=== PATIENT | female | born 1990 | race Asian ===

== ENCOUNTER → 2017-12-05 | Outpatient (CLI) | payer BC ==
[2017-12-05 08:42] LABS: ADD MAN DIFF? NO
[2017-12-05 08:51] LABS: BASOPHIL # 0.1 10^3/ul (0.0-0.1); BASOPHILS % 1.1 % (0.0-2.0); EOSINOPHILS # 0.2 10^3/ul (0.0-0.5); EOSINOPHILS % 3.2 % (0.0-7.0); HEMATOCRIT 45.2 % (37.0-47.0); HEMOGLOBIN 15.6 g/dl (12.0-16.0); LYMPHOCYTES # 1.9 10^3/ul (0.8-2.9); LYMPHOCYTES % 29.4 % (15.0-51.0); MEAN CORPUSCULAR HEMOGLOBIN 29.8 pg (29.0-33.0); MEAN CORPUSCULAR HGB CONC 34.5 g/dl (32.0-37.0); MEAN CORPUSCULAR VOLUME 86.3 fl (82.0-101.0); MEAN PLATELET VOLUME 9.7 fl (7.4-10.4); MONOCYTE # 0.4 10^3/ul (0.3-0.9); MONOCYTES % 5.8 % (0.0-11.0); NEUTROPHIL # 3.9 10^3/ul (1.6-7.5); NEUTROPHILS % 60.2 % (39.0-77.0); PLATELET COUNT 313 10^3/UL (140-415); RED BLOOD COUNT 5.24 10^6/ul (4.20-5.40); RED CELL DISTRIBUTION WIDTH 12.3 % (11.5-14.5)
[2017-12-05 08:51] LABS: WHITE BLOOD COUNT 6.5 10^3/ul (4.8-10.8)
[2017-12-05 09:00] LABS: HEMOGLOBIN A1C 5.4 % (0-5.9)
[2017-12-05 09:25] LABS: ALANINE AMINOTRANSFERASE 44 IU/L (13-69); ALBUMIN 4.8 g/dl (3.3-4.9); ALBUMIN/GLOBULIN RATIO 1.71; ALKALINE PHOSPHATASE 80 IU/L (42-121); ANION GAP 17 (8-16); ASPARTATE AMINO TRANSFERASE 27 IU/L (15-46); BILIRUBIN,INDIRECT 0.5 mg/dl (0-1.1); BILIRUBIN,TOTAL 0.5 mg/dl (0.2-1.3); BLOOD UREA NITROGEN 16 mg/dl (7-20); CALCIUM 9.5 mg/dl (8.4-10.2); CARBON DIOXIDE 25 mmol/L (21-31); CHLORIDE 105 mmol/L (97-110); CHOL/HDL RATIO 2.8 RATIO; CHOLESTEROL 169 mg/dl (100-200); CREATININE 1.01 mg/dl (0.44-1.00); GLUCOSE 101 mg/dl (70-220); HDL CHOLESTEROL 59 mg/dl (34-82); LDL CHOLESTEROL,CALCULATED 93 mg/dl; POTASSIUM 4.9 mmol/L (3.5-5.1); SODIUM 142 mmol/L (135-144); TOTAL PROTEIN 7.6 g/dl (6.1-8.1); TRIGLYCERIDES 84 mg/dl (0-149)
[2017-12-05 09:42] LABS: T4 (THYROXINE) 5.5 ug/dl (5.5-11.0)
== END | disposition home or self-care (01) ==
LOC: LAB 08:17
DX: R73.03 Prediabetes (principal); E78.5 Hyperlipidemia, unspecified; E03.9 Hypothyroidism, unspecified
CPT/HCPCS: 80053; 80061; 83036; 84436; 84443; 85025